=== PATIENT | female | born 1970 | race Caucasian/White ===

== ENCOUNTER 2018-02-20 10:58 | Outpatient (CLI) | payer MEDICAID, SELFPAY ==
[2018-02-20 11:35] LABS: Abs Immature Grans 0.01 k/cumm (0.0-0.09); Absolute Basophil Count 0.04 k/cumm (0.0-0.2); Absolute Eosinophil Count 0.11 k/cumm (0.0-0.7); Absolute Lymphocyte Count 1.06 k/cumm (1.2-3.4); Absolute Monocyte Count 0.59 k/cumm (0.11-0.7); Absolute Neutrophil Count 3.73 k/cumm (1.2-6.7); Basophils % 0.7; HCT 36.3 % (36.0-46.0); HGB 11.5 g/dL (12.0-15.5); Immature Grans % 0.2; Lymphocytes % 19.1; Mean Corp. HGB Concentration 31.7 g/dL (32.0-36.0); Mean Corpuscular Volume 88.3 fL (80-95); Mean Platelet Volume 9.3 fL (8.0-11.0); Monocytes % 10.6; Neutrophils % 67.4; Platelet Count 294 x1000/uL (130-400); RBC 4.11 m/cumm (4.00-5.20); RBC Distribution Width 16.5 % (11.7-14.6); White Blood Cell Count 5.54 k/cumm (4.4-10.8)
[2018-02-20 12:15] LABS: Iron 55 ug/dL (50-175); Total Iron Binding Capacity 446 ug/dL (250-450); Transferrin Sat 12 % (15-50)
[2018-02-20 12:40] LABS: ALT 20 U/L (12-78); AST 20 U/L (15-37); Alkaline Phosphatase 54 U/L (46-116); Anion Gap 10.8 mmol/L (3-11); BUN 15 mg/dL (7-18); Bilirubin, Total 0.3 mg/dL (0.2-1.0); CO2 27.2 mmol/L (21.0-32.0); CREATININE 0.64 mg/dL (0.55-1.02); Calcium 9.6 mg/dL (8.5-10.1); Chloride 103 mmol/L (98-107); Ferritin 6 ng/mL (8-388); Folate 8.7 ng/mL (8.6-20.0); Glucose 95 mg/dL (70-100); Potassium 4.5 mmol/L (3.5-5.1); Sodium 141 mmol/L (136-145); Total Protein 6.9 g/dL (6.4-8.2); Vitamin B12 596 pg/mL (193-986)
== END 2018-02-20 11:18 ==
PROVIDERS: PCP Family Medicine; Visit Provider Internal Medicine Hematology & Oncology
DX: Z98.84 Bariatric surgery status (principal)
CPT/HCPCS: 36415; 80053; 82607; 82728; 82746; 83540; 83550; 85025

== ENCOUNTER 2020-09-16 10:45 | Outpatient (REF) | payer MEDICAID, SELFPAY ==
[2020-09-17 15:42] LABS: COVID-19 RT-PCR UVMMC Result Negative (Negative)
== END 2020-09-16 10:46 | disposition home or self-care (01) ==
LOC: NCHCN 10:45
PROVIDERS: PCP Family Medicine; Visit Provider Internal Medicine
DX: Z20.822 Contact with and (suspected) exposure to COVID-19 (principal)
CPT/HCPCS: U0003

== ENCOUNTER 2021-10-11 09:41 | Outpatient (CLI) | payer MEDICAID, SELFPAY ==
--- NOTE | 2021-10-11 09:30 | DI.RAD_ITS ---
Exam(s) XR SHOULDER RT COMPLETE 2+V EXAM: XR SHOULDER RT COMPLETE 2+V CLINICAL HISTORY: R shoulder pain. TECHNIQUE: 2D digital imaging was performed. Three views. COMPARISON: CR RIGHT SHOULDER COMPLETE from 06/14/2017 FINDINGS: BONES: No acute fracture is present. No bony destructive lesion is seen. JOINTS: Widened acromioclavicular joint with elevation of the distal clavicle, unchanged from prior. Mild widening of the coracoclavicular distance. Mild spurring at the glenoid. Glenohumeral joint s pace is well maintained. SOFT TISSUE: Normal. IMPRESSION: Old chromium clavicular joint separation. Mild degenerative changes at the glenohumeral joint. DATA REPOSITORY: RADIATION DOSE DELIVERED:
== END 2021-10-11 09:42 | disposition home or self-care (01) ==
LOC: DIORS 09:42
PROVIDERS: PCP Family Medicine; Referring Provider Family Medicine; Visit Provider Physician Assistant
DX: M25.511 Pain in right shoulder (principal); M25.811 Other specified joint disorders, right shoulder
CPT/HCPCS: 73030